=== PATIENT | male | born 1970 | race Caucasian/White ===

== ENCOUNTER → 2017-01-16 | Outpatient (CLI) | payer OTHER ==
--- NOTE | ~2017-01-16 | US5 ---
[facility] A Service of [facility] RADIOLOGY TEXT RESULTS PATIENT: MARCO GUNTER LOCATION: [facility] : 68 UNIT #: [id number] AGE: [address]: BAUDILIO MENJIVAR MD SEX: M ORDER DR: [id number] [facility]. [place], [place] [address] [id number] O MR#: [id number] Acc #: [id number] NAME: MARCO GUNTER : 1970 SEX: M STUDY DATE/TIME: 01/16/2017 7:37 UNIT: [facility] ROOM: STUDY DESCRIPTION: US Abdominal Complete Attending Physician: Baudilio Menjivar M.D. Referring Physician: Baudilio Menjivar M.D. Ordering Physician: Baudilio Menjivar M.D. MEDICAL IMAGING REPORT This report is preliminary unless electronic signature is present EXAM Abdominal ultrasound INDICATION Abdominal pain for 1 week. This has gotten worse over the past weekend. TECHNIQUE Collado-scale, color Doppler and spectral Doppler waveform analysis was performed through the abdomen. FINDINGS Abdominal aorta measures within normal size limits. There is limited visualization of the pancreas; however, visualized portions appear unremarkable. Patient's liver is enlarged measuring up to 17.5 cm in craniocaudal dimensions. It is however, homogeneous in echotexture. I do not see any focal hepatic lesions. Main portal vein is patent with hepatopetal flow. Right kidney is normal appearance with no solid or cystic renal masses seen, and no hydronephrosis identified. Muffle Worker questions some sludge within the gallbladder. This is not convincingly demonstrated on the submitted images. Certainly no stones are seen. The left kidney is normal in appearance. Again there are no solid or cystic renal masses. The spleen is also within normal limits. IMPRESSION 1. Mild hepatomegaly with the liver measuring up to 17.5 cm in craniocaudal dimensions. No focal hepatic lesions are seen. There is no intra or extrahepatic biliary dilatation. 2. Muffle Worker reports some sludge within the gallbladder. This is not convincingly demonstrated on the submitted images. [facility] A Service of [facility] RADIOLOGY TEXT RESULTS PATIENT: MARCO GUNTER LOCATION: [facility] : 68 UNIT #: [id number] AGE: [address]: BAUDILIO MENJIVAR MD SEX: M ORDER DR: Dictated by... Carrol Medina M.D. THIS IS AN ELECTRONICALLY VERIFIED REPORT Carrol Medina M.D. at 01/16/2017 4:37 PM AFF/ea TD: 01/16/2017 12:20 JOB #: [id number] MEDICAL IMAGING REPORT Page 1 of 1 COPY
== END | disposition home or self-care (01) ==
LOC: CGUS 07:16
DX: R10.9 Unspecified abdominal pain (principal); R16.0 Hepatomegaly, not elsewhere classified; K82.8 Other specified diseases of gallbladder
CPT/HCPCS: 76700